=== PATIENT | female | born 1995 | race Caucasian/White ===

== ENCOUNTER 2016-10-19 21:16 | Emergency (ER) | payer OTHER ==
[~2016-10-19] VITALS: Ht 154.9 cm; Wt 75.0 kg
[2016-10-19] MEDS ORDERED: OMNIPAQUE 350 MG/ML, 150 ML BOTTLE ONE (22:32)
[2016-10-19 22:44] VITALS: BP 130/85
== END 2016-10-19 23:08 | disposition home or self-care (01) ==
LOC: ED 22:28
DX: M54.2 Cervicalgia (principal); R13.14 Dysphagia, pharyngoesophageal phase
CPT/HCPCS: 36415; 74220; 84439; 84443; 99285; Q9967

== ENCOUNTER 2017-04-24 13:59 | Emergency (ER) | payer OTHER ==
[~2017-04-24] VITALS: Ht 154.9 cm; Wt 72.3 kg
[2017-04-24] MEDS ORDERED: SODIUM CHLORIDE 0.9% 1,000ML IVBOLUS ONE (14:30)
[2017-04-24] MEDS ORDERED: DIPHENHYDRAMINE 50 MG/ML, 1ML IVPush ONE (14:30)
[2017-04-24] MEDS ORDERED: SODIUM CHLORIDE FLUSH 10ML SYR IVF ONE (14:30)
[2017-04-24] MEDS ORDERED: KETOROLAC 30 MG/1 ML IVPush ONE (14:30)
[2017-04-24] MEDS ORDERED: METOCLOPRAMIDE 5 MG/ML, 2ML IVPush ONE (14:30)
[2017-04-24 14:48] LABS: BASOPHILS # (AUTO) 0.11 x10^3/uL (0-0.1); BASOPHILS % (AUTO) 1 % (0-1); EOSINOPHILS # (AUTO) 0.16 x10^3/uL (0-0.4); EOSINOPHILS % (AUTO) 2 % (1-7); LYMPHOCYTES # (AUTO) 3.04 x10^3/uL (1-3.4); LYMPHOCYTES % (AUTO) 33 % (22-44); MD NO; MEAN CORPUSCULAR HEMOGLOBIN 29.7 pg (27.0-34.8); MEAN CORPUSCULAR HGB CONC 33.8 g/dL (32.4-35.8); MEAN CORPUSCULAR VOLUME 87.8 fL (80-100); MEAN PLATELET VOLUME 8.4 fL (7.4-10.4); MONOCYTES # (AUTO) 0.55 x10^3/uL (0.2-0.8); MONOCYTES % (AUTO) 6 % (2-9); NEUTROPHILS # (AUTO) 5.32 x10^3/uL (1.8-6.8); NEUTROPHILS % (AUTO) 58 % (42-75); PLATELET COUNT 315 x10^3/uL (130-400); RED CELL DISTRIBUTION WIDTH 13.3 % (9.6-15.2)
[2017-04-24 14:58] LABS: ALBUMIN 3.9 g/dL (3.4-5.0); ANION GAP 8 mmol/L (5-15); CALCIUM 9.1 mg/dL (8.5-10.1); CHLORIDE 106 mmol/L (98-107)
[2017-04-24 15:03] LABS: CREATININE 0.92 mg/dL (0.55-1.02); T4 (THYROXINE) 15.3 mcg/dL (4.8-13.9)
[2017-04-24] MEDS ORDERED: KETOROLAC 30 MG/1 ML ONE (16:55)
[2017-04-24] MEDS ORDERED: METOCLOPRAMIDE 5 MG/ML, 2ML ONE (16:55)
[2017-04-24] MEDS ORDERED: DIPHENHYDRAMINE 50 MG/ML, 1ML ONE (16:55)
[2017-04-24 17:32] LABS: MICROSCOPIC AUTO
[2017-04-24 17:37] LABS: CULTURE INDICATED? YES
[2017-04-24 19:36] VITALS: BP 115/74
== END 2017-04-24 19:38 | disposition home or self-care (01) ==
LOC: ED 18:34
DX: R51 Headache (principal); R94.6 Abnormal results of thyroid function studies; R82.71 Bacteriuria
CPT/HCPCS: 36415; 70450; 80048; 81001; 82040; 84436; 84443; 84703; 85025; 86308; 87086; 93005; 96361; 96374; 96375; 99285; J1200; J1885; J2765; J7030